=== PATIENT | female | born 1960 | race Caucasian/White ===

== ENCOUNTER 2016-11-10 04:44 | Day surgery (SDC) | payer BC ==
--- NOTE | ~2016-11-10 | OP ---
Record Of Operation [facility] [address] [place]. [address] NAME: KAREN BEARD : 56 STATUS : REG [facility] [place] PAT#: [id number] AGE: 56 ADM/REG DATE : 11/10/16 MR#: [id number] REPORT SERV DATE: 11/10/16 DICTATED BY: GABINO PURVIS DATE: 11/10/16 REPORT STATUS : Draft TRANSCRIBED BY: GARY DATE: 11/10/16 DATE OF PROCEDURE: 11/10/2016 PREOPERATIVE DIAGNOSES: Left L4-5 disk herniation and foraminal stenosis with left L4-5 facet cyst and left lumbar radiculopathy. POSTOPERATIVE DIAGNOSES: Left L4-5 disk herniation and foraminal stenosis with left L4-5 facet cyst and left lumbar radiculopathy. PROCEDURE: Left L4-5 microdiskectomy, use of operative microscope, Minimal Access Spine technology, intraoperative O-arm CT scan with computer navigation. ANESTHESIA: General. ESTIMATED BLOOD LOSS: 10 mL. COMPLICATIONS: None. INDICATIONS: The patient is a pleasant 56-year-old with intractable left leg pain, failed conservative treatment, and after discussion of risks and benefits, elected to proceed with the above-noted surgery. PROCEDURE IN DETAIL: I identified the patient in the holding area. Consent was obtained. Went to the operating room. Underwent general anesthesia with endotracheal intubation. Prepped and draped in the usual sterile fashion. Operative safety pause was performed. Then, we proceeded with surgery. O-arm registration frame was placed in the iliac crest. O arm was brought in for intraoperative CT scan. Computer registration materials were verified. Under computer guidance, a left longitudinal incision was made over the L4-L5 level and taken down through the fascial layer. Tube dilators were used to minimally invasively dissect down to the left L4-5 interspace. Operative microscope was brought in. A mik was used to perform a laminotomy. Wilmer performed a foraminotomy, partial facetectomy, and removal of facet cyst. Disk was identified and incised, and free disk material was removed with pituitary. The L4 and L5 nerve roots were free of compression on the left side at the end of the case. Irrigation was performed. Hemostasis was achieved. 40 mg of Depo-Medrol was injected over the nerve roots. A layered closure was performed. Sterile dressings were applied. The patient was awoken, extubated, and taken to the recovery room in stable condition. OPERATIVE FINDINGS: Left L4-5 disk herniation and foraminal stenosis from facet cyst. MAXI/GARY Gabino Purvis DO Record Of Operation [address] [address] NAME: KAREN BEARD : 56 STATUS : REG [facility] [place] PAT#: [id number] AGE: 56 ADM/REG DATE : 11/10/16 MR#: [id number] REPORT SERV DATE: 11/10/16 DICTATED BY: GABINO PURVIS DATE: 11/10/16 REPORT STATUS : Draft TRANSCRIBED BY: GARY DATE: 11/10/16 / [id number] CC: DO GILLIAN Hopkins ERIN
[~2016-11-10 04:44] MED LIST: ADVAIR250 INH; ALBUTEROL0.63 MG/3 INH; C25 PO; C5 PO; COUMADIN4 MG PO; NEXIUM20 M1 PO; NORCO1 TA1 PO; PERCOCET1 TA2 PO; PRIN2.5 PO; VENTOLIN HFA INH; VESICARE10 MG PO
[2016-11-10 06:10] LABS: INTERNATIONAL NORMAL RATI 1.2 UNITS (-); PROTIME (NOT ORD) 14.7 SEC (12.0-14.5)
[2016-11-10 06:16] LABS: BUN (BLOOD UREA NITROGEN) 5 MG/DL (6-23); CALCIUM, SERUM 8.7 MG/DL (8.5-10.4); CHLORIDE, SERUM 91 MMOL/L (96-112); CO2 (CARBON DIOXIDE) 26 MMOL/L (24-34); CREATININE 0.47 MG/DL (0.55-1.02); GFR AFRICAN AMERICAN 126 ML/MIN (>=60); GFR NON AFRICAN AMERICAN 109 ML/MIN (>=60); GLUCOSE, SERUM 64 MG/DL (60-99); POTASSIUM, SERUM 3.7 MMOL/L (3.5-5.3); SODIUM, SERUM 127 MMOL/L (135-148)
== END 2016-11-10 12:38 | disposition home or self-care (01) ==
LOC: SDC 04:44
PROVIDERS: Orthopaedic Surgery
PROC: 01NB0ZZ Release Lumbar Nerve, Open Approach (ICD-10-PCS; 2016-11-10)
PROC: 0ST20ZZ Resection of Lumbar Vertebral Disc, Open Approach (ICD-10-PCS; principal; 2016-11-10 06:45)
DX: M51.16 Intervertebral disc disorders with radiculopathy, lumbar region (principal); M48.00 Spinal stenosis, site unspecified; I10 Essential (primary) hypertension; J45.909 Unspecified asthma, uncomplicated; K21.9 Gastro-esophageal reflux disease without esophagitis; E87.1 Hypo-osmolality and hyponatremia; M19.90 Unspecified osteoarthritis, unspecified site; Z98.890 Other specified postprocedural states
CPT/HCPCS: 80048; 85014; 85018; 85610; 88304; 88311; 93005; A9270-GY; J0690; J1030; J1644; J2250; J2405; J2710; J3010